=== PATIENT | male | born 1995 | race Hispanic/Latino ===

== ENCOUNTER 2024-06-08 14:47 | Emergency (ER) | payer SELFPAY ==
[~2024-06-08] VITALS: Ht 165.1 cm; Wt 65.7 kg
[2024-06-08] VITALS (7 sets, daily range): BP systolic 113–129; BP diastolic 70–87
[2024-06-08] MEDS ORDERED: IBUPROFEN 600 MG/TAB PO ONE (14:55)
[2024-06-08] MEDS ORDERED: TRAMADOL HYDROC50 M1 PO (16:11)
== END 2024-06-08 16:37 | disposition home or self-care (01) | DRG 563 ==
LOC: ED 14:47
PROC: 2W3RX1Z Immobilization of Left Lower Leg using Splint (ICD-10-PCS; principal; 2024-06-08)
DX: S82.62XA Displaced fracture of lateral malleolus of left fibula, initial encounter for closed fracture (principal); X58.XXXA Exposure to other specified factors, initial encounter; Y93.66 Activity, soccer